=== PATIENT | female | born 1940 | race Hispanic/Latino ===

== ENCOUNTER → 2021-05-22 | Outpatient (CLI) | payer MEDICARE | LOC: RAD 15:53 | PROVIDERS: ATTEND Family Medicine | DX: R06.00 Dyspnea, unspecified (principal); S69.91XA Unspecified injury of right wrist, hand and finger(s), initial encounter | CPT/HCPCS: 71046 ==

== ENCOUNTER 2021-05-28 08:05 | Inpatient (IN) | payer MEDICARE ==
[~2021-05-28] VITALS: Ht 149.9 cm; Wt 81.6 kg
[2021-05-28 08:41] LABS: BASOPHILS % 0.3 % (0.0-1.0); EOSINOPHILS % 0.1 % (0.0-6.0); HEMATOCRIT 42.7 % (34.2-44.1); HEMOGLOBIN 12.1 g/dL (12.0-16.0); LYMPHOCYTES # (AUTO) 0.7 (1.0-3.2); LYMPHOCYTES % 9.6 % (18.0-39.1); MEAN CORPUSCULAR HEMOGLOBIN 30.3 pg (28-32); MEAN CORPUSCULAR HGB CONC 28.3 g/dL (31-35); MONOCYTES # (AUTO) 0.6 (0.2-0.8); MONOCYTES % 8.8 % (4.4-11.3); NEUTROPHILS # (AUTO) 5.8 (2.1-6.9); NEUTROPHILS % 80.6 % (38.7-80.0); PLATELET COUNT 95 x10e3/uL (140-360); RED BLOOD COUNT 3.99 x10e6/uL (3.6-5.1); RED CELL DISTRIBUTION WIDTH 18.6 % (11.7-14.4)
[2021-05-28] MEDS ORDERED: AMIODARONE HCL 150MG 100 ML ONE (08:45)
[2021-05-28] MEDS ORDERED: AMIODARONE 900MG 500 ML IV ONE ×2 (08:46→09:00)
[2021-05-28] MEDS ORDERED: MAGNESIUM SULF 1GRAM/DEXTROSE 100 ML IV ONE ×3 (08:46→09:00)
[2021-05-28] MEDS ORDERED: AMIODARONE HCL 150MG 100 ML IV STA (08:47)
[2021-05-28 08:56] LABS: ALBUMIN 3.8 g/dL (3.5-5.0); ALBUMIN/GLOBULIN RATIO 0.9 (0.8-2.0); ANION GAP 15.6 mmol/L (8-16); CALCIUM 9.8 mg/dL (8.4-10.2); CREATININE, SERUM 1.08 mg/dL (0.57-1.11); POTASSIUM 4.6 mmol/L (3.5-5.1)
[2021-05-28 08:57] LABS: INR 1.26; PROTHROMBIN TIME 16.6 seconds (11.9-14.5)
[2021-05-28 08:58] LABS: PARTIAL THROMBOPLASTIN TIME 44.3 seconds (23.8-35.5)
[2021-05-28 09:02] LABS: CREATINE KINASE MB 5.2 ng/mL (0-5.0)
[2021-05-28 09:17] LABS: B-TYPE NATRIURETIC PEPTIDE2 1349.5 pg/mL (0-100)
[2021-05-28 09:35] LABS: CLARITY,URINE CLEAR (CLEAR); COLOR,URINE YELLOW (YELLOW); KETONES,URINE NEGATIVE (NEGATIVE); LEUKOCYTE ESTERASE ,URINE NEGATIVE (NEGATIVE); NITRITE,URINE NEGATIVE (NEGATIVE); PROTEIN,URINE DIPSTICK 2+ (NEGATIVE); URINE UROBILINOGEN 1 mg/dL (0.2 - 1)
[2021-05-28 09:51] LABS: BACTERIA,URINE MANY /HPF; EPITHELIAL CELLS,URINE FEW /LPF; WBC,URINE (MAN) 0-5 /HPF (0-5)
[2021-05-28] MEDS ORDERED: FUROSEMIDE INJ 10 MG/ML 4 ML VIAL IV ONE (10:00)
[2021-05-28] MEDS ORDERED: BACITRACIN ZINC 0.9GM TP ONE (10:10)
[2021-05-28 10:17] LABS: ABG PH 7.21 (7.35-7.45)
[2021-05-28 10:18] LABS: ABG HCO3 46 mmol/L (22-26); ABG PCO2 116 mmHg (35-45); ABG PO2 272 mmHg (80-105); ABG TCO2 50
[2021-05-28] MEDS: METOPROLOL TARTRATE 50 MG TAB PO SCH ×2 (11:52→22:23)
[2021-05-28] MEDS ORDERED: AMIODARONE HCL 360MG 200 ML IV SCH (12:00)
[2021-05-28] MEDS ORDERED: DIGOXIN INJ 0.25 MG/ML 2 ML AMP IV ONE (12:00)
[2021-05-28 14:14] LABS: CREATINE KINASE MB 5.6 ng/mL (0-5.0)
[2021-05-28] MEDS: AMIODARONE 900MG 500 ML IV SCH (14:55)
[2021-05-28 16:14] LABS: ABG PH 7.31 (7.35-7.45)
[2021-05-28 16:15] LABS: ABG PCO2 87 mmHg (35-45); ABG PO2 85 mmHg (80-105)
[2021-05-28 16:16] LABS: ABG HCO3 43 mmol/L (22-26); ABG TCO2 46
[2021-05-28] MEDS ORDERED: FUROSEMIDE INJ 10 MG/ML 4 ML VIAL IV SCH (17:00)
[2021-05-28] MEDS: HYDRALAZINE HCL 25 MG TAB PO SCH (17:50)
[2021-05-28] MEDS: APIXAB 2.5 MG TABLET PO SCH (18:15)
[2021-05-28] MEDS: CEFTRIAXONE 1 GM in SODIUM CHLORIDE 0.9% 50ML 50 ML IV SCH (20:01)
[2021-05-28 21:54] LABS: CREATINE KINASE MB 4.2 ng/mL (0-5.0)
[2021-05-29] VITALS (19 sets, daily range): BP systolic 100–153; BP diastolic 44–86
[2021-05-29 05:45] LABS: BASOPHILS % 0.2 % (0.0-1.0); HEMATOCRIT 39.9 % (34.2-44.1); HEMOGLOBIN 11.5 g/dL (12.0-16.0); LYMPHOCYTES # (AUTO) 0.3 (1.0-3.2); LYMPHOCYTES % 5.5 % (18.0-39.1); MEAN CORPUSCULAR HEMOGLOBIN 29.9 pg (28-32); MEAN CORPUSCULAR HGB CONC 28.8 g/dL (31-35); MONOCYTES # (AUTO) 0.5 (0.2-0.8); MONOCYTES % 8.5 % (4.4-11.3); NEUTROPHILS # (AUTO) 4.8 (2.1-6.9); NEUTROPHILS % 85.1 % (38.7-80.0); PLATELET COUNT 91 x10e3/uL (140-360); RED BLOOD COUNT 3.85 x10e6/uL (3.6-5.1); RED CELL DISTRIBUTION WIDTH 18.7 % (11.7-14.4)
[2021-05-29] MEDS: METOPROLOL TARTRATE 50 MG TAB PO SCH ×3 (06:00→21:17)
[2021-05-29 06:07] LABS: ALBUMIN 3.3 g/dL (3.5-5.0); ALBUMIN/GLOBULIN RATIO 0.8 (0.8-2.0); ANION GAP 14.7 mmol/L (8-16); CALCIUM 9.2 mg/dL (8.4-10.2); CREATININE, SERUM 1.01 mg/dL (0.57-1.11); POTASSIUM 4.7 mmol/L (3.5-5.1)
[2021-05-29 06:13] LABS: MEAN CORPUSCULAR VOLUME 105.8 fL (81-99)
[2021-05-29 06:38] LABS: CHOL/HDL RATIO 2.4 (3.0-3.6)
[2021-05-29 06:47] LABS: CREATINE KINASE MB 3.8 ng/mL (0-5.0)
[2021-05-29 06:57] LABS: THYROID STIMULATING HORMONE 1.963 uIU/mL (0.350-4.940)
[2021-05-29] MEDS ORDERED: BUMETANIDE 1 MG TAB PO SCH (09:00)
[2021-05-29] MEDS: AMIODARONE 900MG 500 ML IV SCH (10:34)
[2021-05-29] MEDS: DIGOXIN 0.125 MG TAB PO SCH (12:15)
[2021-05-29] MEDS: HYDRALAZINE HCL 25 MG TAB PO SCH ×2 (12:15→17:49)
[2021-05-29] MEDS: APIXAB 2.5 MG TABLET PO SCH ×2 (12:15→17:49)
[2021-05-29] MEDS: CEFTRIAXONE 1 GM in SODIUM CHLORIDE 0.9% 50ML 50 ML IV SCH (19:08)
[2021-05-30] VITALS (14 sets, daily range): BP systolic 67–146; BP diastolic 45–78
[2021-05-30] MEDS: METOPROLOL TARTRATE 50 MG TAB PO SCH ×3 (06:00→22:23)
[2021-05-30] MEDS: HYDRALAZINE HCL 25 MG TAB PO SCH ×2 (08:42→17:53)
[2021-05-30] MEDS: DIGOXIN 0.125 MG TAB PO SCH (08:42)
[2021-05-30] MEDS: APIXAB 2.5 MG TABLET PO SCH ×2 (08:42→17:52)
[2021-05-30] MEDS: FUROSEMIDE 20 MG TAB PO SCH (11:34)
[2021-05-30] MEDS: CEFTRIAXONE 1 GM in SODIUM CHLORIDE 0.9% 50ML 50 ML IV SCH (19:50)
[2021-05-30] MEDS ORDERED: SODIUM CHLORIDE 0.9% 250ML 250 ML ONE (19:54)
[2021-05-31 04:00] VITALS: BP 103/68
[2021-05-31] MEDS: METOPROLOL TARTRATE 50 MG TAB PO SCH ×2 (05:25→18:16)
[2021-05-31 07:18] LABS: ALBUMIN 2.9 g/dL (3.5-5.0); ALBUMIN/GLOBULIN RATIO 0.8 (0.8-2.0); ANION GAP 13.8 mmol/L (8-16); CALCIUM 8.9 mg/dL (8.4-10.2); CREATININE, SERUM 1.29 mg/dL (0.57-1.11); POTASSIUM 4.8 mmol/L (3.5-5.1)
[2021-05-31 07:50] VITALS: BP 110/51
[2021-05-31] MEDS: HYDRALAZINE HCL 25 MG TAB PO SCH ×2 (09:00→18:16)
[2021-05-31 11:20] VITALS: BP 95/41
[2021-05-31 12:45] VITALS: BP 95/41
[2021-05-31] MEDS: APIXAB 2.5 MG TABLET PO SCH ×2 (14:31→18:16)
[2021-05-31] MEDS: FUROSEMIDE 20 MG TAB PO SCH (14:33)
[2021-05-31] MEDS: DIGOXIN 0.125 MG TAB PO SCH (14:33)
[2021-05-31] MEDS: CEFTRIAXONE 1 GM in SODIUM CHLORIDE 0.9% 50ML 50 ML IV SCH (19:53)
[2021-05-31 20:00] VITALS: BP 95/45
[2021-05-31 21:34] VITALS: BP 95/45
[2021-05-31] MEDS: ACETAMINOPHEN 325 MG TAB PO PRN (23:50)
[2021-06-01] VITALS (7 sets, daily range): BP systolic 103–134; BP diastolic 52–63
[2021-06-01 06:06] LABS: BASOPHILS % 0.6 % (0.0-1.0); EOSINOPHILS # (AUTO) 0.1 (0.0-0.4); EOSINOPHILS % 1.2 % (0.0-6.0); HEMATOCRIT 39.7 % (34.2-44.1); HEMOGLOBIN 11.5 g/dL (12.0-16.0); LYMPHOCYTES # (AUTO) 0.6 (1.0-3.2); LYMPHOCYTES % 11.5 % (18.0-39.1); MEAN CORPUSCULAR HEMOGLOBIN 29.9 pg (28-32); MEAN CORPUSCULAR VOLUME 103.1 fL (81-99); MONOCYTES # (AUTO) 0.6 (0.2-0.8); MONOCYTES % 12.5 % (4.4-11.3); NEUTROPHILS # (AUTO) 3.6 (2.1-6.9); PLATELET COUNT 118 x10e3/uL (140-360); RED BLOOD COUNT 3.85 x10e6/uL (3.6-5.1); RED CELL DISTRIBUTION WIDTH 18.2 % (11.7-14.4)
[2021-06-01 06:22] LABS: ANION GAP 13.7 mmol/L (8-16); CALCIUM 8.6 mg/dL (8.4-10.2); CREATININE, SERUM 1.33 mg/dL (0.57-1.11); POTASSIUM 4.7 mmol/L (3.5-5.1)
[2021-06-01] MEDS ORDERED: ALBUTEROL/IPRATROPIUM 3 ML NEB NEB PRN (08:45)
[2021-06-01] MEDS: METOPROLOL TARTRATE 50 MG TAB PO SCH ×2 (09:00→17:57)
[2021-06-01] MEDS: APIXAB 2.5 MG TABLET PO SCH ×2 (09:21→17:57)
[2021-06-01] MEDS: HYDRALAZINE HCL 25 MG TAB PO SCH ×2 (09:21→17:57)
[2021-06-01] MEDS: ACETAMINOPHEN 325 MG TAB PO PRN (09:32)
[2021-06-01] MEDS: PIPERACILLIN/TAZOBACTAM 2.25 GM in SODIUM CHLORIDE 0.9% 50ML 50 ML IV SCH ×2 (09:32→17:56)
[2021-06-01] MEDS: ALBUTEROL/IPRATROPIUM 3 ML NEB NEB SCH ×3 (11:00→19:11)
[2021-06-01] MEDS: ACETYLCYSTEINE 200 MG/ML 4ML VIAL INH SCH ×3 (11:00→19:11)
[2021-06-02] VITALS (7 sets, daily range): BP systolic 104–133; BP diastolic 59–64
[2021-06-02] MEDS: PIPERACILLIN/TAZOBACTAM 2.25 GM in SODIUM CHLORIDE 0.9% 50ML 50 ML IV SCH ×3 (00:17→16:56)
[2021-06-02] MEDS: ALBUTEROL/IPRATROPIUM 3 ML NEB NEB SCH ×4 (01:15→19:29)
[2021-06-02] MEDS: ACETYLCYSTEINE 200 MG/ML 4ML VIAL INH SCH ×4 (01:15→19:28)
[2021-06-02 05:53] LABS: BASOPHILS % 0.4 % (0.0-1.0); EOSINOPHILS # (AUTO) 0.1 (0.0-0.4); EOSINOPHILS % 0.9 % (0.0-6.0); HEMATOCRIT 38.2 % (34.2-44.1); HEMOGLOBIN 11.4 g/dL (12.0-16.0); LYMPHOCYTES # (AUTO) 0.5 (1.0-3.2); LYMPHOCYTES % 7.9 % (18.0-39.1); MEAN CORPUSCULAR HEMOGLOBIN 30.3 pg (28-32); MEAN CORPUSCULAR HGB CONC 29.8 g/dL (31-35); MEAN CORPUSCULAR VOLUME 101.6 fL (81-99); MONOCYTES # (AUTO) 0.6 (0.2-0.8); NEUTROPHILS # (AUTO) 4.5 (2.1-6.9); NEUTROPHILS % 79.4 % (38.7-80.0); PLATELET COUNT 116 x10e3/uL (140-360); RED BLOOD COUNT 3.76 x10e6/uL (3.6-5.1); RED CELL DISTRIBUTION WIDTH 18.4 % (11.7-14.4)
[2021-06-02 06:22] LABS: ANION GAP 13.5 mmol/L (8-16); CREATININE, SERUM 1.25 mg/dL (0.57-1.11); POTASSIUM 4.5 mmol/L (3.5-5.1)
[2021-06-02] MEDS: APIXAB 2.5 MG TABLET PO SCH ×2 (09:07→16:56)
[2021-06-02] MEDS: METOPROLOL TARTRATE 50 MG TAB PO SCH ×2 (09:07→16:56)
[2021-06-02] MEDS: HYDRALAZINE HCL 25 MG TAB PO SCH ×2 (09:07→16:56)
[2021-06-03] VITALS (8 sets, daily range): BP systolic 106–128; BP diastolic 53–68
[2021-06-03] MEDS: PIPERACILLIN/TAZOBACTAM 2.25 GM in SODIUM CHLORIDE 0.9% 50ML 50 ML IV SCH ×3 (00:34→17:28)
[2021-06-03 07:10] LABS: ANION GAP 13.5 mmol/L (8-16); CALCIUM 9.2 mg/dL (8.4-10.2); CREATININE, SERUM 1.17 mg/dL (0.57-1.11); POTASSIUM 4.5 mmol/L (3.5-5.1)
[2021-06-03] MEDS: APIXAB 2.5 MG TABLET PO SCH ×2 (08:14→17:26)
[2021-06-03] MEDS: METOPROLOL TARTRATE 50 MG TAB PO SCH ×2 (08:14→17:26)
[2021-06-03] MEDS: HYDRALAZINE HCL 25 MG TAB PO SCH ×2 (08:14→17:00)
[2021-06-03] MEDS: ACETYLCYSTEINE 200 MG/ML 4ML VIAL INH SCH ×4 (08:55→22:11)
[2021-06-03] MEDS: ALBUTEROL/IPRATROPIUM 3 ML NEB NEB SCH ×3 (08:56→19:29)
[2021-06-04] VITALS (8 sets, daily range): BP systolic 109–121; BP diastolic 51–62
[2021-06-04] MEDS: ACETYLCYSTEINE 200 MG/ML 4ML VIAL INH SCH ×4 (00:48→21:08)
[2021-06-04] MEDS: PIPERACILLIN/TAZOBACTAM 2.25 GM in SODIUM CHLORIDE 0.9% 50ML 50 ML IV SCH ×3 (01:11→17:26)
[2021-06-04] MEDS: ALBUTEROL/IPRATROPIUM 3 ML NEB NEB SCH ×4 (01:33→19:50)
[2021-06-04] MEDS: ACETAMINOPHEN 325 MG TAB PO PRN (07:53)
[2021-06-04] MEDS: HYDRALAZINE HCL 25 MG TAB PO SCH ×2 (09:00→17:26)
[2021-06-04] MEDS: METOPROLOL TARTRATE 50 MG TAB PO SCH ×2 (09:36→17:26)
[2021-06-04] MEDS: APIXAB 2.5 MG TABLET PO SCH (09:36)
[2021-06-05] VITALS: BP 110/61
[2021-06-05] MEDS: PIPERACILLIN/TAZOBACTAM 2.25 GM in SODIUM CHLORIDE 0.9% 50ML 50 ML IV SCH ×2 (00:15→08:44)
[2021-06-05] MEDS: ALBUTEROL/IPRATROPIUM 3 ML NEB NEB SCH ×2 (01:41→07:20)
[2021-06-05] MEDS: ACETYLCYSTEINE 200 MG/ML 4ML VIAL INH SCH ×2 (01:42→07:20)
[2021-06-05 04:00] VITALS: BP 114/68
[2021-06-05 08:18] VITALS: BP 110/65
[2021-06-05] MEDS: HYDRALAZINE HCL 25 MG TAB PO SCH (08:44)
[2021-06-05] MEDS: METOPROLOL TARTRATE 50 MG TAB PO SCH (08:44)
[2021-06-05 08:47] VITALS: BP 110/65
[2021-06-05] MEDS ORDERED: APIXAB 2.5 MG TABLET PO SCH ×2 (10:45→17:00)
[2021-06-05 12:14] VITALS: BP 120/88
== END 2021-06-05 12:15 | DRG 177 ==
LOC: ER 08:35 → ERHOLD 10:20 → ICU 05-29 14:31 → MED/SURG 05-30 10:12
PROVIDERS: ADMIT Internal Medicine; ATTEND Internal Medicine
PROC: 02HV33Z Insertion of Infusion Device into Superior Vena Cava, Percutaneous Approach (ICD-10-PCS; principal; 2021-05-28)
PROC: 5A09357 Assistance with Respiratory Ventilation, Less than 24 Consecutive Hours, Continuous Positive Airway Pressure (ICD-10-PCS; 2021-05-28)
DX: J69.0 Pneumonitis due to inhalation of food and vomit (principal); J96.22 Acute and chronic respiratory failure with hypercapnia; I50.33 Acute on chronic diastolic (congestive) heart failure; N17.0 Acute kidney failure with tubular necrosis; I13.0 Hypertensive heart and chronic kidney disease with heart failure and stage 1 through stage 4 chronic kidney disease, or unspecified chronic kidney disease; B57.2 Chagas' disease (chronic) with heart involvement; E87.0 Hyperosmolality and hypernatremia; N39.0 Urinary tract infection, site not specified; I47.2 Ventricular tachycardia; I48.0 Paroxysmal atrial fibrillation; Z79.01 Long term (current) use of anticoagulants; I11.0 Hypertensive heart disease with heart failure; I27.81 Cor pulmonale (chronic); Z99.81 Dependence on supplemental oxygen; I27.20 Pulmonary hypertension, unspecified; Z86.16 Personal history of COVID-19; D69.6 Thrombocytopenia, unspecified; N18.9 Chronic kidney disease, unspecified
CPT/HCPCS: 36415; 36569; 36600; 51700; 71045; 71250; 80048; 80053; 80061; 80162; 81001; 82270; 82550; 82553; 82805; 82948; 83605; 83735; 83880; 84443; 84484; 85025; 85610; 85730; 87040; 87086; 93005; 93306; 94640; 94660; 94799; 97139; 99285; J0696; J1160; J1940; J2543; J3475; J7050; U0002

== ENCOUNTER 2021-06-14 10:26 | Inpatient (IN) | payer MEDICARE ==
[~2021-06-14] VITALS: Ht 165.1 cm; Wt 72.6 kg
[2021-06-14] VITALS (17 sets, daily range): BP systolic 95–142; BP diastolic 45–97
[2021-06-14 11:35] LABS: BASOPHILS % 0.3 % (0.0-1.0); HEMOGLOBIN 13.2 g/dL (12.0-16.0); LYMPHOCYTES # (AUTO) 0.4 (1.0-3.2); LYMPHOCYTES % 4.1 % (18.0-39.1); MEAN CORPUSCULAR HEMOGLOBIN 30.2 pg (28-32); MEAN CORPUSCULAR VOLUME 100.7 fL (81-99); MONOCYTES # (AUTO) 0.8 (0.2-0.8); MONOCYTES % 8.5 % (4.4-11.3); NEUTROPHILS % 86.1 % (38.7-80.0); PLATELET COUNT 133 x10e3/uL (140-360); RED BLOOD COUNT 4.37 x10e6/uL (3.6-5.1); RED CELL DISTRIBUTION WIDTH 18.6 % (11.7-14.4)
[2021-06-14 11:42] LABS: INR 2.01
[2021-06-14 11:43] LABS: PARTIAL THROMBOPLASTIN TIME 50.6 seconds (23.8-35.5)
[2021-06-14 11:43] LABS: CLARITY,URINE TURBID (CLEAR); COLOR,URINE RED (YELLOW); KETONES,URINE 2+ (NEGATIVE); LEUKOCYTE ESTERASE ,URINE LARGE (NEGATIVE); NITRITE,URINE POSITIVE (NEGATIVE); PROTEIN,URINE DIPSTICK >=300 (NEGATIVE); URINE UROBILINOGEN >=8 mg/dL (0.2 - 1)
[2021-06-14] MEDS ORDERED: CEFTRIAXONE 1 GM in SODIUM CHLORIDE 0.9% 50ML 50 ML IV ONE (11:45)
[2021-06-14 11:50] LABS: ANION GAP 20.5 mmol/L (8-16); CREATININE, SERUM 3.2 mg/dL (0.57-1.11)
[2021-06-14 11:51] LABS: ALBUMIN 3.1 g/dL (3.5-5.0); ALBUMIN/GLOBULIN RATIO 0.8 (0.8-2.0); MAGNESIUM 3.4 MG/DL (1.3-2.1)
[2021-06-14 11:54] LABS: POTASSIUM 7.5 mmol/L (3.5-5.1)
[2021-06-14] MEDS ORDERED: ALBUTEROL SULF 0.083% NEB SOLN 3 ML NEB NEB STA (11:56)
[2021-06-14] MEDS ORDERED: DEXTROSE 50% SYRINGE 50 ML IV STA (11:56)
[2021-06-14 11:58] LABS: CREATINE KINASE MB 7.4 ng/mL (0-5.0)
[2021-06-14 12:00] LABS: BACTERIA,URINE MODERATE /HPF; RBC,URINE >50 /HPF (0-5); WBC,URINE (MAN) >50 /HPF (0-5)
[2021-06-14] MEDS ORDERED: SODIUM CHLORIDE 0.9% 250ML 250 ML IV ONE (12:00)
[2021-06-14] MEDS ORDERED: SOD POLYSTYRENE SULFONATE SUSP 15 GM/60 ML BTL PO NR (12:00)
[2021-06-14] MEDS ORDERED: INSULIN REGULAR, HUMAN 100 UNIT/1 ML IV NR (12:00)
[2021-06-14 12:01] LABS: EPITHELIAL CELLS,URINE RARE /LPF
[2021-06-14 12:01] LABS: B-TYPE NATRIURETIC PEPTIDE2 1190.7 pg/mL (0-100)
[2021-06-14 12:11] LABS: ABG PH 7.29 (7.35-7.45)
[2021-06-14 12:12] LABS: ABG HCO3 32 mmol/L (22-26); ABG PCO2 67 mmHg (35-45); ABG PO2 81 mmHg (80-105); ABG TCO2 34
[2021-06-14] MEDS ORDERED: SODIUM BICARBONATE 8.4% INJ 50 ML SYR IV NR (12:15)
[2021-06-14] MEDS: MEROPENEM 500 MG in SODIUM CHLORIDE 0.9% 50ML 50 ML IV SCH ×2 (12:42→21:17)
[2021-06-14 12:56] LABS: ANION GAP 21.5 mmol/L (8-16); CALCIUM 8.9 mg/dL (8.4-10.2); CREATININE, SERUM 3.25 mg/dL (0.57-1.11)
[2021-06-14 13:05] LABS: POTASSIUM 7.5 mmol/L (3.5-5.1)
[2021-06-14 15:46] LABS: ANION GAP 17.7 mmol/L (8-16); CALCIUM 8.2 mg/dL (8.4-10.2); CREATININE, SERUM 3.11 mg/dL (0.57-1.11)
[2021-06-14 15:48] LABS: POTASSIUM 6.7 mmol/L (3.5-5.1)
[2021-06-14] MEDS ORDERED: HYDRALAZINE HCL25 MG PO (16:10)
[2021-06-14] MEDS ORDERED: METOPROLOL TART50 MG PO (16:10)
[2021-06-14] MEDS ORDERED: KLOR-CON 1010 MEQ PO (16:10)
[2021-06-14] MEDS ORDERED: MUCINEX DM ER1 EACH PO (16:10)
[2021-06-14] MEDS ORDERED: ELIQUIS2.5 MG PO (16:10)
[2021-06-14] MEDS ORDERED: COMBIVENT RESPIM4 GM IH (16:10)
[2021-06-14] MEDS ORDERED: LASIX40 MG PO (16:10)
[2021-06-14] MEDS ORDERED: TYLENOL325 MG PO (16:10)
[2021-06-14] MEDS ORDERED: HEPARIN SOD (PORCINE) 1000 UNIT/ML SDV IV PRN (17:15)
[2021-06-14] MEDS ORDERED: SODIUM CHLORIDE 0.9% 1000ML 2,000 ML IV PRN (17:15)
[2021-06-14 18:29] LABS: CREATINE KINASE MB 8.8 ng/mL (0-5.0)
[2021-06-15] VITALS (23 sets, daily range): BP systolic 79–124; BP diastolic 48–100
[2021-06-15 03:28] LABS: CREATINE KINASE MB 9.2 ng/mL (0-5.0)
[2021-06-15 05:37] LABS: BASOPHILS % 0.2 % (0.0-1.0); EOSINOPHILS % 0.1 % (0.0-6.0); HEMATOCRIT 40.4 % (34.2-44.1); HEMOGLOBIN 12.3 g/dL (12.0-16.0); LYMPHOCYTES # (AUTO) 0.3 (1.0-3.2); LYMPHOCYTES % 2.5 % (18.0-39.1); MEAN CORPUSCULAR HEMOGLOBIN 30.4 pg (28-32); MEAN CORPUSCULAR HGB CONC 30.4 g/dL (31-35); MONOCYTES # (AUTO) 0.8 (0.2-0.8); MONOCYTES % 5.9 % (4.4-11.3); NEUTROPHILS # (AUTO) 11.8 (2.1-6.9); NEUTROPHILS % 90.5 % (38.7-80.0); PLATELET COUNT 94 x10e3/uL (140-360); RED BLOOD COUNT 4.04 x10e6/uL (3.6-5.1); RED CELL DISTRIBUTION WIDTH 19.1 % (11.7-14.4)
[2021-06-15 05:46] LABS: ALBUMIN 2.9 g/dL (3.5-5.0); ALBUMIN/GLOBULIN RATIO 0.8 (0.8-2.0); ANION GAP 19.9 mmol/L (8-16); CALCIUM 8.7 mg/dL (8.4-10.2); CREATININE, SERUM 2.67 mg/dL (0.57-1.11); POTASSIUM 5.9 mmol/L (3.5-5.1)
[2021-06-15] MEDS: MEROPENEM 500 MG in SODIUM CHLORIDE 0.9% 50ML 50 ML IV SCH ×2 (08:12→23:00)
[2021-06-15] MEDS ORDERED: GUAIFENESIN 600MG/DEXTROMETHORPHAN 30MG TABSR PO PRN (09:15)
[2021-06-15] MEDS ORDERED: ACETAMINOPHEN 325 MG TAB PO PRN (09:15)
[2021-06-15] MEDS ORDERED: IPRATROPIUM/ALBUTEROL SULFATE 4 GM INH INH PRN (09:15)
[2021-06-15] MEDS: NOREPINEPHRINE 8 MG/D5W 250 ML 250 ML IV SCH ×2 (10:00→18:37)
[2021-06-15] MEDS ORDERED: FUROSEMIDE INJ 10 MG/ML 4 ML VIAL IV ONE (16:30)
[2021-06-15] MEDS: METOPROLOL TARTRATE 25 MG TAB PO SCH (16:55)
[2021-06-15] MEDS ORDERED: Vancomycin IV 1 GM VIAL ONE (22:59)
[2021-06-16] VITALS (24 sets, daily range): BP systolic 85–122; BP diastolic 43–73
[2021-06-16 05:55] LABS: BASOPHILS % 0.1 % (0.0-1.0); HEMATOCRIT 40.3 % (34.2-44.1); HEMOGLOBIN 12.2 g/dL (12.0-16.0); LYMPHOCYTES # (AUTO) 0.3 (1.0-3.2); LYMPHOCYTES % 1.4 % (18.0-39.1); MEAN CORPUSCULAR HEMOGLOBIN 30.4 pg (28-32); MEAN CORPUSCULAR HGB CONC 30.3 g/dL (31-35); MEAN CORPUSCULAR VOLUME 100.5 fL (81-99); MONOCYTES # (AUTO) 0.9 (0.2-0.8); MONOCYTES % 4.2 % (4.4-11.3); NEUTROPHILS # (AUTO) 18.9 (2.1-6.9); NEUTROPHILS % 93.4 % (38.7-80.0); RED BLOOD COUNT 4.01 x10e6/uL (3.6-5.1); RED CELL DISTRIBUTION WIDTH 18.9 % (11.7-14.4)
[2021-06-16 06:10] LABS: ALBUMIN/GLOBULIN RATIO 0.8 (0.8-2.0); CALCIUM 8.1 mg/dL (8.4-10.2); CREATININE, SERUM 2.21 mg/dL (0.57-1.11)
[2021-06-16 06:20] LABS: PLATELET COUNT 48 x10e3/uL (140-360)
[2021-06-16 07:50] LABS: EOSINOPHILS % (MANUAL) 1 % (0-7); LYMPHOCYTES % (MANUAL) 2 % (19-48); MONOCYTES % (MANUAL) 3 % (3.4-9.0); NEUTROPHILS % (MANUAL) 94 % (40-74)
[2021-06-16 07:51] LABS: ANISOCYTOSIS SLIGHT; PLATELET ESTIMATE MARKEDLY DECREASED; PLATELET MORPHOLOGY COMMENT FEW LARGE; POLYCHROMASIA FEW; RBC MORPHOLOGY COMMENT NORMAL
[2021-06-16] MEDS: METOPROLOL TARTRATE 25 MG TAB PO SCH ×2 (08:07→16:52)
[2021-06-16] MEDS: MEROPENEM 500 MG in SODIUM CHLORIDE 0.9% 50ML 50 ML IV SCH (08:07)
[2021-06-16] MEDS: BALSAM PERU/CASTOR OIL 60 GM OINT...G. TP SCH (08:07)
[2021-06-16] MEDS: NOREPINEPHRINE 8 MG/D5W 250 ML 250 ML IV SCH (08:08)
[2021-06-16] MEDS ORDERED: ALBUMIN 25% 12.5GM 50ML 100 ML IV ONE (09:59)
[2021-06-16] MEDS ORDERED: ALBUMIN 25% 12.5GM 0.25 GM/ML BTL IV PRN (10:15)
[2021-06-16] MEDS: LORAZEPAM INJ 2 MG/ML VIAL IV PRN ×3 (10:18→16:14)
[2021-06-16] MEDS ORDERED: CEFTRIAXONE 2 GM in SODIUM CHLORIDE 0.9% 100 ML IV ONE (13:15)
[2021-06-16 15:52] LABS: ABG PH 7.28 (7.35-7.45)
[2021-06-16 15:53] LABS: ABG HCO3 31 mmol/L (22-26); ABG PCO2 67 mmHg (35-45); ABG PO2 62 mmHg (80-105); ABG TCO2 33
[2021-06-16] MEDS: FLUCONAZOLE 200 MG/100 ML 100 ML IV SCH (16:52)
[2021-06-16] MEDS: DEXMEDETOMIDINE 400MCG/NS100ML 100 ML IV PRN (19:08)
[2021-06-17] VITALS (39 sets, daily range): BP systolic 97–156; BP diastolic 47–94
[2021-06-17 05:15] LABS: BASOPHILS % 0.3 % (0.0-1.0); EOSINOPHILS % 0.4 % (0.0-6.0); HEMOGLOBIN 11.1 g/dL (12.0-16.0); LYMPHOCYTES # (AUTO) 0.4 (1.0-3.2); LYMPHOCYTES % 3.7 % (18.0-39.1); MONOCYTES % 8.4 % (4.4-11.3); NEUTROPHILS # (AUTO) 9.9 (2.1-6.9); NEUTROPHILS % 86.5 % (38.7-80.0); RED CELL DISTRIBUTION WIDTH 18.6 % (11.7-14.4)
[2021-06-17 05:16] LABS: PLATELET COUNT 26 x10e3/uL (140-360)
[2021-06-17 05:34] LABS: ALBUMIN 3.1 g/dL (3.5-5.0); ANION GAP 17.2 mmol/L (8-16); CALCIUM 7.6 mg/dL (8.4-10.2); CREATININE, SERUM 2.21 mg/dL (0.57-1.11); POTASSIUM 5.2 mmol/L (3.5-5.1)
[2021-06-17] MEDS: NOREPINEPHRINE 8 MG/D5W 250 ML 250 ML IV SCH (05:52)
[2021-06-17] MEDS: METOPROLOL TARTRATE 25 MG TAB PO SCH ×2 (08:12→16:22)
[2021-06-17] MEDS: CEFTRIAXONE 2 GM in SODIUM CHLORIDE 0.9% 100 ML IV SCH (08:29)
[2021-06-17] MEDS: BALSAM PERU/CASTOR OIL 60 GM OINT...G. TP SCH (08:29)
[2021-06-17 11:38] LABS: ABG PCO2 53 mmHg (35-45); ABG PH 7.37 (7.35-7.45)
[2021-06-17 11:39] LABS: ABG HCO3 31 mmol/L (22-26); ABG PO2 74 mmHg (80-105); ABG TCO2 32
[2021-06-17] MEDS: LINEZOLID 600 MG/D5W 300ML 300 ML IV SCH ×2 (13:37→22:24)
[2021-06-17] MEDS: FLUCONAZOLE 200 MG/100 ML 100 ML IV SCH (16:22)
[2021-06-17] MEDS: LORAZEPAM INJ 2 MG/ML VIAL IV PRN (18:41)
[2021-06-17] MEDS: DEXMEDETOMIDINE 400MCG/NS100ML 100 ML IV PRN (22:25)
[2021-06-18] VITALS (28 sets, daily range): BP systolic 53–142; BP diastolic 30–70
[2021-06-18 05:45] LABS: BASOPHILS % 0.1 % (0.0-1.0); EOSINOPHILS % 0.3 % (0.0-6.0); HEMATOCRIT 37.1 % (34.2-44.1); HEMOGLOBIN 11.3 g/dL (12.0-16.0); LYMPHOCYTES # (AUTO) 0.5 (1.0-3.2); LYMPHOCYTES % 4.6 % (18.0-39.1); MEAN CORPUSCULAR HEMOGLOBIN 29.9 pg (28-32); MEAN CORPUSCULAR HGB CONC 30.5 g/dL (31-35); MEAN CORPUSCULAR VOLUME 98.1 fL (81-99); MONOCYTES # (AUTO) 0.7 (0.2-0.8); MONOCYTES % 7.2 % (4.4-11.3); NEUTROPHILS # (AUTO) 8.6 (2.1-6.9); NEUTROPHILS % 87.4 % (38.7-80.0); RED BLOOD COUNT 3.78 x10e6/uL (3.6-5.1); RED CELL DISTRIBUTION WIDTH 18.4 % (11.7-14.4)
[2021-06-18 06:11] LABS: ALBUMIN 2.8 g/dL (3.5-5.0); ALBUMIN/GLOBULIN RATIO 0.9 (0.8-2.0); ANION GAP 12.6 mmol/L (8-16); CALCIUM 7.9 mg/dL (8.4-10.2); CREATININE, SERUM 1.6 mg/dL (0.57-1.11); POTASSIUM 3.6 mmol/L (3.5-5.1)
[2021-06-18 06:14] LABS: PLATELET COUNT 24 x10e3/uL (140-360)
[2021-06-18] MEDS: LORAZEPAM INJ 2 MG/ML VIAL IV PRN (07:32)
[2021-06-18] MEDS: CEFTRIAXONE 2 GM in SODIUM CHLORIDE 0.9% 100 ML IV SCH (08:31)
[2021-06-18] MEDS: METOPROLOL TARTRATE 25 MG TAB PO SCH (08:32)
[2021-06-18] MEDS: BALSAM PERU/CASTOR OIL 60 GM OINT...G. TP SCH (08:34)
[2021-06-18] MEDS ORDERED: LORAZEPAM INJ 2 MG/ML VIAL IV PRN (10:00)
[2021-06-18] MEDS ORDERED: Morphine 4mg Syringe 4 MG/ML INJ IV PRN (10:00)
[2021-06-18] MEDS: LORAZEPAM INJ 2 MG/ML VIAL IV SCH ×5 (10:31→22:00)
[2021-06-18] MEDS: Morphine 4mg Syringe 4 MG/ML INJ IV SCH ×5 (10:31→22:00)
== END 2021-06-18 23:59 | disposition expired | DRG 698 ==
LOC: ER 10:44 → ERHOLD 13:43 → ICU 14:44 → IMCU 06-17 22:54 → MED/SURG2 06-18 17:40
PROVIDERS: ADMIT Internal Medicine; ATTEND Internal Medicine
PROC: 5A1D70Z Performance of Urinary Filtration, Intermittent, Less than 6 Hours Per Day (ICD-10-PCS; 2021-06-14)
PROC: 02HV33Z Insertion of Infusion Device into Superior Vena Cava, Percutaneous Approach (ICD-10-PCS; principal; 2021-06-15)
PROC: 3E043XZ Introduction of Vasopressor into Central Vein, Percutaneous Approach (ICD-10-PCS; 2021-06-15)
PROC: 5A09457 Assistance with Respiratory Ventilation, 24-96 Consecutive Hours, Continuous Positive Airway Pressure (ICD-10-PCS; 2021-06-16)
DX: T83.511A Infection and inflammatory reaction due to indwelling urethral catheter, initial encounter (principal); J96.02 Acute respiratory failure with hypercapnia; I50.33 Acute on chronic diastolic (congestive) heart failure; N17.0 Acute kidney failure with tubular necrosis; A40.9 Streptococcal sepsis, unspecified; R65.21 Severe sepsis with septic shock; D65 Disseminated intravascular coagulation [defibrination syndrome]; B37.49 Other urogenital candidiasis; Z16.22 Resistance to vancomycin related antibiotics; I13.0 Hypertensive heart and chronic kidney disease with heart failure and stage 1 through stage 4 chronic kidney disease, or unspecified chronic kidney disease; D69.6 Thrombocytopenia, unspecified; K80.20 Calculus of gallbladder without cholecystitis without obstruction; I48.91 Unspecified atrial fibrillation; Z66 Do not resuscitate; Z99.81 Dependence on supplemental oxygen; N18.30 Chronic kidney disease, stage 3 unspecified; Z79.01 Long term (current) use of anticoagulants; K21.9 Gastro-esophageal reflux disease without esophagitis; Z91.041 Radiographic dye allergy status; Z20.822 Contact with and (suspected) exposure to COVID-19; E87.5 Hyperkalemia; Z83.3 Family history of diabetes mellitus; Z82.49 Family history of ischemic heart disease and other diseases of the circulatory system; E87.6 Hypokalemia; Z51.5 Encounter for palliative care
CPT/HCPCS: 36415; 36600; 71045; 74176; 80048; 80053; 80162; 81001; 82550; 82553; 82805; 83605; 83615; 83735; 83880; 84165; 84484; 84550; 85025; 85610; 85730; 86021; 86022; 86039; 86705; 86706; 87040; 87086; 87186; 87340; 93005; 94640; 94660; 94799; 96360; 99251; 99284; J0696; J1450; J1644; J1817; J1940; J2020; J2060; J2185; J2270; J3370; J7030; J7050; J7799; U0002